=== PATIENT | male | born 1975 | race Hispanic/Latino ===

== ENCOUNTER 2018-07-11 01:10 | Emergency (ER) | payer OTHER ==
[2018-07-11] MEDS ORDERED: DIAZEPAM 5 MG TABLET ONE (01:51)
[2018-07-11] MEDS ORDERED: ONDANSETRON HCL 4 MG/2 ML VIAL ONE (01:51)
[2018-07-11 01:56] LABS: BASOPHILS % (AUTO) 0.7 % (0.0-5.0); EOSINOPHILS % (AUTO) 0.2 % (0.0-8.0); HEMATOCRIT 42.6 % (42-54); MEAN CORPUSCULAR HEMOGLOBIN 30.2 pg (27.0-33.0); MEAN CORPUSCULAR VOLUME 88.7 fL (79-99); MONOCYTES % (AUTO) 5.3 % (3.0-13.0); NEUTROPHILS % (AUTO) 71.8 % (40.0-77.0); PLATELET COUNT (AUTO) 238 K/uL (130-400); RED BLOOD CELL COUNT(AUTO) 4.81 MIL/uL (4.50-6.20); RED CELL DISTRIBUTION WIDTH 13.7 % (11.0-15.5); WHITE BLOOD COUNT (AUTO) 12.1 K/uL (4.8-10.8)
[2018-07-11 02:02] LABS: CREATININE 1.2 mg/dL (0.5-1.5); POTASSIUM 3.8 mmol/L (3.5-5.1)
[2018-07-11] MEDS ORDERED: PROCHLORPERAZINE EDISYLATE 10 MG/2 ML VIAL ONE (02:40)
[2018-07-11] MEDS ORDERED: SODIUM CHLORIDE 0.9% 500ML 500 ML IV ONE (02:40)
== END 2018-07-11 04:34 | disposition home or self-care (01) ==
LOC: EDH 01:10
DX: R51 Headache (principal); R11.0 Nausea
CPT/HCPCS: 36415; 70450; 80048; 85025; 93005; 96374; 96375; 99285; J0780; J2405; J7040